=== PATIENT | male | born 1950 | race Caucasian/White ===

== ENCOUNTER 2018-07-28 16:45 | Inpatient (IN) | payer MEDICARE, MEDICAID ==
[2015-04-20 10:10] VITALS: Ht 182.9 cm; Wt 64.0 kg
[~2018-07-28] VITALS: Ht 182.9 cm; Wt 64.0 kg
[~2018-07-28 16:45] MED LIST: ASPI-1471 PO; FAMO-67 PO; GAB300 PO; IBU800 PO; IBUP-56 PO; LOR2I IV; LORA0.5T11 PO; NIC10R INH; PER PO; TRAZ150T8 PO; [UNRECOGNIZED DRUG - CODE]; no
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
[2018-07-28] MEDS ORDERED: THIAMINE HCL(*) 200 MG/2 ML IN 100 MG, FOLIC ACID(*) 50 MG/10 ML INJ 1 MG, MULTIVITAMIN... IV ONE (17:09)
[2018-07-28 17:26] LABS: PLATELET COUNT, AUTOMATED 146 K/uL (150-450)
[2018-07-28 17:34] LABS: INR 1.03
[2018-07-28] MEDS ORDERED: LORazepam 2 MG/ML VIAL IVP ONE ×3 (17:50→20:30)
--- NOTE | 2018-07-28 18:00 | RADIOLOGY IMAGING REPORT ---
FACILITY: [facility] PATIENT NAME: Tiburcio Christianson : 1950 MR: [id number] V: [id number] EXAM DATE: ORDERING PHYSICIAN: LOVE KING TECHNOLOGIST: Location: [facility] - [place] Patient: Tiburcio Christianson : 1950 Visit/Account:[id number] Date of Sevice: 07/28/2018 ADDENDUM #1 ADDENDUM: For clarification this is a right shoulder study. The first line of the BONES section should read "o blique lucency in the distal RIGHT clavicle just proximal to the AC joint consistent with an acute no ndisplaced fracture." Report Dictated By: Luis Marte at 08/03/2018 9:02 AM Report E-Signed By: Luis Marte at 08/03/2018 9:02 AM ORIGINAL REPORT SHOULDER MIN 2 VIEWS RIGHT COMPARISON: None. HISTORY: fall, pain TECHNIQUE: 3 views of the right shoulder were obtained FINDINGS: BONES: Oblique lucency in the distal left clavicle just proximal to the AC joint consistent with an acute nondisplaced fracture. The AC joint is intact and normally aligned. Glenohumeral joint is int act and normally aligned. No significant arthropathy or appreciable subacromial spur. Visualized ri ght ribs are intact. SOFT TISSUES: Negative. No visible soft tissue swelling. EFFUSION: None suggested. OTHER: Advanced facet joint arthritis, visualized cervical spine. IMPRESSION: Acute nondisplaced fracture of the distal right clavicle just proximal to the AC joint. Report Dictated By: Luis Marte at 07/28/2018 5:53 PM Report E-Signed By: Luis Marte at 07/28/2018 5:56 PM WSN:[email or web address]
--- NOTE | 2018-07-28 18:02 | RADIOLOGY IMAGING REPORT ---
FACILITY: [facility] PATIENT NAME: Tiburcio Christianson : 1950 MR: [id number] V: [id number] EXAM DATE: ORDERING PHYSICIAN: LOVE KING TECHNOLOGIST: Location: [facility] Patient: Tiburcio Christianson : 1950 Visit/Account:[id number] Date of Sevice: 07/28/2018 EXAMINATION: CT head without IV contrast HISTORY: Fall. TECHNIQUE: Axial CT images of the head were obtained from the vertex to the skull base without IV c ontrast, with coronal and sagittal 2D reconstructed images. One of the following dose optimization techniques was utilized in the performance of this exam: Autom ated exposure control; adjustment of the mA and/or kV according to the patient's size; or use of an i terative reconstruction technique. Specific details can be referenced in the facility's radiology C T exam operational policy. COMPARISON: None. FINDINGS: Moderate generalized parenchymal atrophy with mild patchy low attenuation in the deep white matter co mpatible with chronic small vessel ischemic change. Intracranial vascular calcifications. No CT evidence of intracranial hemorrhage, mass lesion, or acute infarct. No midline shift or extra-a xial fluid collections. Corbett-white differentiation is maintained. The calvarium is intact. The partially visualized paranasal sinuses and mastoid air cells are unopaci fied. IMPRESSION: 1. No CT evidence of acute intracranial pathology. 2. Moderate parenchymal atrophy with chronic small vessel ischemic change. Report Dictated By: Eb Feliz MD at 07/28/2018 5:50 PM Report E-Signed By: Eb Feliz MD at 07/28/2018 5:57 PM WSN:[email or web address]
--- NOTE | 2018-07-28 18:04 | RADIOLOGY IMAGING REPORT ---
FACILITY: [facility] [place] PATIENT NAME: Tiburcio Christianson : 1950 MR: [id number] V: [id number] EXAM DATE: ORDERING PHYSICIAN: LOVE KING TECHNOLOGIST: Location: [facility] [place] Patient: Tiburcio Christianson : 1950 Visit/Account:[id number] Date of Sevice: 07/28/2018 EXAMINATION: CT cervical spine without IV contrast HISTORY: Fall. TECHNIQUE: Thin axial CT images of the cervical spine were obtained without IV contrast, with sagit jeff and coronal 2D reconstructed images. One of the following dose optimization techniques was utilized in the performance of this exam: Autom ated exposure control; adjustment of the mA and/or kV according to the patient's size; or use of an i terative reconstruction technique. Specific details can be referenced in the facility's radiology C T exam operational policy. COMPARISON: None. FINDINGS: Advanced multilevel spondylotic changes in the cervical spine. There is severe disc space narrowing at the C3-C4 through C6-C7 interspaces, with endplate osteophyte formation. There is likely severe c entral canal narrowing at C4-C5 and C5-C6 related to posterior disc-osteophyte complexes. Multilevel facet arthropathy bilaterally. There is bony ankylosis of the right C2-C3 facet joint and the left C2-C4 facet joints. There is loss of the normal cervical lordosis with mild cervical kyphosis centered at C4 which may be chronic and degenerative in nature. No evidence of acute fracture or subluxation along the cervical spine. Vertebral body height is main tained. The dens is intact. Normal alignment at the craniocervical junction. IMPRESSION: 1. No acute osseous findings along the cervical spine. 2. Advanced chronic multilevel degenerative changes with likely severe central canal narrowing at C4 -C5 and C5-C6. Report Dictated By: Eb Feliz MD at 07/28/2018 5:57 PM Report E-Signed By: Eb Feliz MD at 07/28/2018 6:01 PM WSN:[email or web address]
[2018-07-28] MEDS ORDERED: DIAZEPAM 10 MG TAB PO PRN (20:25)
[2018-07-28 21:01] VITALS: BP 123/96
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
[2018-07-28] MEDS: NS(*) 0.9% 1000 ML BAG 1,000 ML IV PRN (21:52)
[2018-07-29] VITALS (8 sets, daily range): BP systolic 112–150; BP diastolic 72–107
[2018-07-29] MEDS: DIAZEPAM 10 MG TAB PO PRN ×4 (00:19→23:18)
[2018-07-29] MEDS: NS(*) 0.9% 1000 ML BAG 1,000 ML IV PRN (03:14)
[2018-07-29 06:15] LABS: PLATELET COUNT, AUTOMATED 126 K/uL (150-450)
[2018-07-29] MEDS: THIAMINE HCL 100 MG TAB PO SCH (08:41)
[2018-07-29] MEDS: FOLIC ACID 1 MG TAB PO SCH (08:41)
[2018-07-29] MEDS: ENOXAPARIN 40 MG/0.4ML SYR SC SCH (08:41)
--- NOTE | 2018-07-29 11:09 | NUR ---
Occupational Therapy Impression Pt seated EOB x15-20 minutes in coordination with PT wound care. Pt requiring Min-Max Ax1-2 to maintain upright balance seated EOB. Forward lean and right lateral lean present. Sling donned to R UE when OOB. Total Ax2 changing brief supine in bed. Pt reporting no pain throughout, VSS. Recommendations pending progress. Occupational Therapy Goals 1) Pt will be SBA UB/LB dressing. 2) Pt will be SBA grooming/hygiene. 3) Pt will be SBA toilet task. Patient's Goal
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
[2018-07-29] MEDS: NICOTINE INH SYSTEM 10 MG/INH INH PRN ×2 (13:32→21:20)
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
[2018-07-30 01:00] VITALS: BP 147/92
[2018-07-30 06:00] VITALS: BP 127/97
[2018-07-30 06:25] LABS: PLATELET COUNT, AUTOMATED 129 K/uL (150-450)
[2018-07-30] MEDS ORDERED: KCL (*) 20 MEQ/100 ML PREMIX 100 ML IV ONE ×2 (06:45→11:00)
[2018-07-30] MEDS ORDERED: NS(*) 0.9% 500 ML BAG 500 ML ONE (07:08)
[2018-07-30] MEDS ORDERED: NICOTINE CARTRIDGE 1 EA PO PRN (07:15)
[2018-07-30 07:35] VITALS: BP 118/80
[2018-07-30] MEDS: THIAMINE HCL 100 MG TAB PO SCH (09:04)
[2018-07-30] MEDS: ENOXAPARIN 40 MG/0.4ML SYR SC SCH (09:04)
[2018-07-30] MEDS: FOLIC ACID 1 MG TAB PO SCH (09:04)
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
[2018-07-30 13:07] VITALS: BP 118/87
--- NOTE | 2018-07-30 14:26 | NUR ---
Physical Therapy Impression Pt showed increased awareness and ability to maintain posture. Pt. was able to tf from supine in bed to sitting EOB with Kailash. Pt. was able to get LE off bed w/SBA, but required head of bed raised and Kailash to get into sitting EOB. Pt. sat at EOB for several minutes with CGA before standing. Pt, stood up from EOB w/ modA to maintain balance. Pt, took several side steps w/ modA of 2. Pt was left supine in bed w/pressure relief, all needs met, and family notified. Pt would benefit from further skilled PT care to improve overall strength, endurance, and ability to perform functional skills. Physical Therapy Goals 1: Pt to complete bed mobiltiy with Iam 2: Pt to complete transfers with Iam and appropriate AD 3: Pt to ambulate 100' with SBA and appropriate AD 4: Pt to asc/desc 1 step with SBA to simulate community mobility. Patient's Goals
--- NOTE | 2018-07-30 14:28 | NUR ---
This Physical Therapist or Hand Coremaker was present for the entire physical therapy session directing the services, making the skilled judgement, and was not engaged in treating another patient or doing another task at the same time as the treatment session. Addendum: 07/30/18 at 1428 by DARIANA DIEGO PT Amended: Links added.
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
--- NOTE | 2018-07-30 14:45 | NUR ---
Occupational Therapy Impression Introduced theraputty HEP to improve FM skills for feeding. Set-up combing hair. Recommend long-term rehab. Occupational Therapy Goals 1) Pt will be SBA UB/LB dressing. 2) Pt will be SBA grooming/hygiene. 3) Pt will be SBA toilet task. Patient's Goal
[2018-07-30] MEDS ORDERED: MAGNESIUM SUL* 2 GM/50 ML IVPB 50 ML IVPB ONE (15:55)
[2018-07-30 16:27] VITALS: BP 110/77
[2018-07-30] MEDS ORDERED: KCL (*) 20 MEQ/100 ML PREMIX 100 ML IV SCH (16:30)
[2018-07-30] MEDS: KCL (*) 20 MEQ/100 ML PREMIX 100 ML IV SCH ×2 (18:27→21:54)
[2018-07-30 19:53] VITALS: BP 139/99
[2018-07-31] VITALS (10 sets, daily range): BP systolic 87–166; BP diastolic 68–107
[2018-07-31] MEDS ORDERED: KCL/NS* 20 MEQ/1000 ML PREMIX 1,000 ML IV ONE (08:45)
--- NOTE | 2018-07-31 09:05 | NUR ---
Physical Therapy Impression Patient refused services today reports he does not want to do anything today. Nursing reports he did not sleep well last night.
[2018-07-31] MEDS: ENOXAPARIN 40 MG/0.4ML SYR SC SCH (09:06)
[2018-07-31] MEDS: FOLIC ACID 1 MG TAB PO SCH (09:06)
[2018-07-31] MEDS: THIAMINE HCL 100 MG TAB PO SCH (09:06)
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
[2018-07-31] MEDS: DIAZEPAM 10 MG TAB PO PRN ×2 (15:01→16:09)
[2018-07-31] MEDS ORDERED: METOPROLOL TART 5 MG/5 ML VIAL IVP ONE (18:05)
--- NOTE | 2018-07-31 19:01 | EKG ---
FACILITY: [facility] PATIENT NAME: LUÍS GRACE : [id number] MR: [id number] V: [id number] EXAM DATE: ORDERING PHYSICIAN: GHULAM CHRISTY TECHNOLOGIST: LEON Test Reason : TACHYCARDIA Blood Pressure : / mmHG Vent. Rate : 143 BPM Atrial Rate : 143 BPM P-R Int : 136 ms QRS Dur : 082 ms QT Int : 266 ms P-R-T Axes : 081 097 081 degrees QTc Int : 410 ms Sinus tachycardia Right atrial enlargement Rightward axis Pulmonary disease pattern Abnormal ECG When compared with ECG of 15-APR-2013 04:53, No significant change was found Confirmed by Ghulam Hernandez ([id number] on 07/31/2018 9:49:29 PM Referred By: Confirmed By:Ghulam Christy
[2018-07-31] MEDS ORDERED: NS(*) 0.9% 1000 ML BAG 1,000 ML IV ONE (19:45)
[2018-07-31] MEDS ORDERED: NS(*) 0.9% 50 ML BAG 50 ML ONE (19:56)
[2018-07-31] MEDS ORDERED: IOPAMIDOL 76% 100 ML INFUS BTL 100 ML ONE (19:56)
[2018-07-31 20:24] LABS: PLATELET COUNT, AUTOMATED 146 K/uL (150-450)
--- NOTE | 2018-07-31 21:54 | RADIOLOGY IMAGING REPORT ---
FACILITY: [facility] [place] PATIENT NAME: Tiburcio Christianson : 1950 MR: [id number] V: [id number] EXAM DATE: ORDERING PHYSICIAN: GHULAM CHRISTY TECHNOLOGIST: Location: [facility] Patient: Tiburcio Christianson : 1950 Visit/Account:[id number] Date of Sevice: 07/31/2018 EXAMINATION: CT CHEST PULMONARY ANGIOGRAM COMPARISON: None available HISTORY: tachycardia, elevated d-dimer PROCEDURE: Pulmonary arterial phase imaging of the chest with 75 mL intravenous Isovue 370. Reconstru ction of the source data set includes multiplanar 2D in the sagittal and coronal planes, and 3D recon structed coronal slab MIP series. One of the following dose optimization techniques was utilized in the performance of this exam: Autom ated exposure control; adjustment of the mA and/or kV according to the patient's size; or use of an i terative reconstruction technique. Specific details can be referenced in the facility's radiology C T exam operational policy. FINDINGS: Pulmonary vasculature: There is good contrast opacification of the pulmonary arterial system. No pul monary embolism. Main pulmonary artery size is normal. Cardiac and mediastinum: Cardiac chamber size is normal. Trace nonspecific pericardial effusion. No t horacic aortic aneurysm. Lymph nodes: Negative. Lungs and pleura: No consolidation or nodule. No pneumothorax, edema, or effusion. Minimal atelectasi s. Airways: Negative. Visualized upper abdomen: Mild adrenal thickening suggestive of adrenal hyperplasia. No acute finding s. Osseous structures: T10 and T12 superior endplate age-indeterminate compression fractures with minima l vertebral body height loss. Right lateral sixth and seventh rib healing fractures with additional h ealed right rib fractures. IMPRESSION: 1. No pulmonary embolism or evidence of acute cardiopulmonary disease. 2. T10 and T12 superior endplate age-indeterminate compression fractures. Correlation with any histor y of acute back pain or trauma is recommended. 3. Right lateral sixth and seventh rib healing fractures. Report Dictated By: Adrian Edouard MD at 07/31/2018 9:41 PM Report E-Signed By: Adrian Edouard MD at 07/31/2018 9:51 PM WSN:[id number]
[2018-08-01] VITALS (7 sets, daily range): BP systolic 87–180; BP diastolic 69–97
[2018-08-01] MEDS: ENOXAPARIN 40 MG/0.4ML SYR SC SCH (10:04)
[2018-08-01] MEDS: THIAMINE HCL 100 MG TAB PO SCH (10:05)
[2018-08-01] MEDS: FOLIC ACID 1 MG TAB PO SCH (10:05)
[2018-08-01] MEDS ORDERED: VANCOMYCIN(*) 1 GM VIAL 1 GM, VANCOMYCIN HCL 0.750 GM VIAL 0.75 GM in NS(*) 0.9% 250 ML... IVPB ONE (13:30)
[2018-08-01] MEDS: NS(*) 0.9% 1000 ML BAG 1,000 ML IV PRN (13:33)
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
[2018-08-01] MEDS: cefTRIAXone 1 GM VIAL IVP SCH (17:50)
[2018-08-02] MEDS: NS(*) 0.9% 1000 ML BAG 1,000 ML IV PRN ×2 (00:14→09:05)
[2018-08-02] MEDS ORDERED: VANCOMYCIN(*) 1 GM VIAL 1 GM in NS(*) 0.9% 250 ML BAG 250 ML IVPB SCH (01:30)
[2018-08-02 02:37] VITALS: BP 154/91
[2018-08-02 06:16] LABS: PLATELET COUNT, AUTOMATED 132 K/uL (150-450)
[2018-08-02 07:21] VITALS: BP 164/89
[2018-08-02 07:51] VITALS: BP 178/82
[2018-08-02] MEDS: FOLIC ACID 1 MG TAB PO SCH (08:57)
[2018-08-02] MEDS: ENOXAPARIN 40 MG/0.4ML SYR SC SCH (08:57)
[2018-08-02] MEDS: THIAMINE HCL 100 MG TAB PO SCH (08:57)
[2018-08-02] MEDS: POTASSIUM CHL 20 MEQ TABCR PO SCH ×2 (08:57→16:25)
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
--- NOTE | 2018-08-02 13:01 | NUR ---
Physical Therapy Impression Pt. was modA of two for supine<>sit, needing HOB raised and assistance with UE/LE. Pt. was Kailash for sit<>supine. Pt. performed 3x sit<>stand w/ modA and cuing for hip extension due to retropulsive stance. Pt. was able to briefly hold standing position. Pt. then performed 3x sit<> stand using sit<>stand lift and Kailash, cuing to not pull with R arm. Pt. attempted two side steps with modA. Pt. had significant difficulty and had to sit. Pt. would benefit from further skilled PT care to improve overall strength, improving standing tolerance. Pt. was left in bed w/ all needs met, call light in reach, and turned for pressure relief.
--- NOTE | 2018-08-02 13:21 | Pharmacy Note ---
Vancomycin Management Note Vanco Dosing Note Random Vanco level of 7 after load and 1g Q12h x 1 dose. Patient is under weight for height and has good renal function. Will increase dose to 1250mg Q12H and check for organism ID tomorrow. New vanco level to be drawn 08/03 at 1230. KALLIE CAMACHO August 02, 2018 13:21
[2018-08-02] MEDS ORDERED: VANCOMYCIN(*) 1 GM VIAL 1 GM, VANCOMYCIN (*) 0.5 GM VIAL 0.25 GM in NS(*) 0.9% 250 ML B... IVPB SCH (13:30)
--- NOTE | 2018-08-02 14:18 | NUR ---
Occupational Therapy Impression Pt alert and agreeable to OT tx with encouragement. Sling donned to right UE throughout tx. Max Ax1 bed mobility in/out with HOB raised. Max Ax1 sit<>stands in EZ lift. Retropulsive with sit<>stands. CGA<>Min A to maintain safety in EZ lift. Max Ax1 to change brief standing in EZ lift. Recommend long-term rehab. Occupational Therapy Goals 1) Pt will be SBA UB/LB dressing. 2) Pt will be SBA grooming/hygiene. 3) Pt will be SBA toilet task. Patient's Goal
--- NOTE | 2018-08-02 15:09 | NUR ---
Physical Therapy Impression Pt. was modA of two for supine>sit, needing HOB raised and assistance with UE/LE. Pt. was Kailash for sit>supine. Pt. performed 3x sit<>stand w/ modA and cuing for hip extension due to retropulsive stance. Pt. was able to briefly hold standing position. Pt. then performed 3x sit<> stand using sit<>stand lift and Kailash, cuing to not pull with R arm. Pt. attempted two side steps with modA. Pt. had signifcant diffuclty and had to sit. Pt. would benefit from further skilled PT care to improve overall strength, improving standing tolerance. Pt. was left in bed w/ all needs met, call light in reach, and turned for pressure relief. Physical Therapy Goals 1: Pt to complete bed mobiltiy with Iam 2: Pt to complete transfers with Iam and appropriate AD 3: Pt to ambulate 100' with SBA and appropriate AD 4: Pt to asc/desc 1 step with SBA to simulate community mobility. Patient's Goals
--- NOTE | 2018-08-02 15:10 | NUR ---
This Physical Therapist or Dx Board Operator was present for the entire physical therapy session directing the services, making the skilled judgement, and was not engaged in treating another patient or doing another task at the same time as the treatment session. Addendum: 08/02/18 at 1511 by DARIANA DIEGO PT Amended: Links added.
[2018-08-02] MEDS: cefTRIAXone 1 GM VIAL IVP SCH (15:17)
[2018-08-02 15:20] VITALS: BP 140/87
[2018-08-02] MEDS ORDERED: INFLUENZA VIRUS VAC 0.5ML SYR IM ONLY ONE (20:25)
[2018-08-02 20:29] VITALS: BP 166/83
[2018-08-03] VITALS (7 sets, daily range): BP systolic 122–172; BP diastolic 55–100
[2018-08-03] MEDS ORDERED: VANCOMYCIN(*) 1 GM VIAL 1 GM, VANCOMYCIN (*) 0.5 GM VIAL 0.25 GM in NS(*) 0.9% 250 ML B... IVPB SCH (01:30)
[2018-08-03] MEDS: NS(*) 0.9% 1000 ML BAG 1,000 ML IV PRN (03:36)
[2018-08-03 06:24] LABS: PLATELET COUNT, AUTOMATED 160 K/uL (150-450)
[2018-08-03] MEDS: THIAMINE HCL 100 MG TAB PO SCH (08:20)
[2018-08-03] MEDS: POTASSIUM CHL 20 MEQ TABCR PO SCH ×2 (08:20→16:16)
[2018-08-03] MEDS: ENOXAPARIN 40 MG/0.4ML SYR SC SCH (08:20)
[2018-08-03] MEDS: FOLIC ACID 1 MG TAB PO SCH (08:20)
--- NOTE | 2018-08-03 09:01 | NUR ---
Physical Therapy Impression Patient was able to transfer supine <-> sit with min A with HOB in upright position. When transferring back to bed patient transferred sit to supine min A with raised HOB. Patient transferred from EOB to STS lift with min A patient transferred from toilet to stand with mod A. Patient transferred from EOB to ground x 3 transfers with min to mod A and 1 side step. For all transfers SSDS MK 2 ADVANCED OPERATOR was present and helping. Physical Therapy Goals 1: Pt to complete bed mobiltiy with Iam 2: Pt to complete transfers with Iam and appropriate AD 3: Pt to ambulate 100' with SBA and appropriate AD 4: Pt to asc/desc 1 step with SBA to simulate community mobility. Patient's Goals
[2018-08-03] MEDS: CLINDAMYCIN 150 MG CAP PO SCH ×4 (09:43→21:34)
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
--- NOTE | 2018-08-03 13:04 | NUR ---
Occupational Therapy Impression Mod A x1 bed mobility in/out. Retropulsive with sit<>stands. CGA<>Min A to maintain safety in EZ lift. Tolerating marching in place and standing [id number] in EZ lift. Right UE in sling for duration of tx. Pt declining ADLs. Plan to progressive less restrictive AD in tomorrows session. Recommend long-term rehab. Occupational Therapy Goals 1) Pt will be SBA UB/LB dressing. 2) Pt will be SBA grooming/hygiene. 3) Pt will be SBA toilet task. Patient's Goal
[2018-08-03] MEDS: ACETAMINOPHEN 500 MG TAB PO PRN (23:33)
[2018-08-04 05:50] LABS: PLATELET COUNT, AUTOMATED 217 K/uL (150-450)
--- NOTE | 2018-08-04 08:30 | NUR ---
Physical Therapy Impression Patient instructed in gait training in room with FWW with max cuing not to use his left arm. Patient was non compliant with sling and not using arm for ambulation. Patient was CGA with ambulation from bed to door then to bathroom back to door then to bed. Patient was SBA with bed mobility. Co treatment with OT was necessary for safety of patient. Physical Therapy Goals 1: Pt to complete bed mobiltiy with Iam 2: Pt to complete transfers with Iam and appropriate AD 3: Pt to ambulate 100' with SBA and appropriate AD 4: Pt to asc/desc 1 step with SBA to simulate community mobility. Patient's Goals
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
[2018-08-04 09:08] VITALS: BP 131/70
[2018-08-04] MEDS: CLINDAMYCIN 150 MG CAP PO SCH ×4 (09:34→20:36)
[2018-08-04] MEDS: THIAMINE HCL 100 MG TAB PO SCH (09:34)
[2018-08-04] MEDS: POTASSIUM CHL 20 MEQ TABCR PO SCH ×2 (09:34→17:21)
[2018-08-04] MEDS: FOLIC ACID 1 MG TAB PO SCH (09:34)
[2018-08-04] MEDS: ENOXAPARIN 40 MG/0.4ML SYR SC SCH (09:34)
[2018-08-04 11:50] VITALS: BP 134/83
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
[2018-08-04 15:33] VITALS: BP 141/77
[2018-08-04 19:44] VITALS: BP 122/79
[2018-08-04] MEDS: ACETAMINOPHEN 500 MG TAB PO PRN (19:56)
[2018-08-05] VITALS (7 sets, daily range): BP systolic 111–183; BP diastolic 74–97
[2018-08-05] MEDS: ENOXAPARIN 40 MG/0.4ML SYR SC SCH (10:26)
[2018-08-05] MEDS: FOLIC ACID 1 MG TAB PO SCH (10:26)
[2018-08-05] MEDS: THIAMINE HCL 100 MG TAB PO SCH (10:26)
[2018-08-05] MEDS: CLINDAMYCIN 150 MG CAP PO SCH (10:26)
[2018-08-05] MEDS: POTASSIUM CHL 20 MEQ TABCR PO SCH ×2 (10:26→17:50)
--- NOTE | 2018-08-05 10:56 | NUR ---
Physical Therapy Impression Patient instructed in gait training with FWW CGA x 2 people for safety for first rep then CGA x 1 person as he had increased stability. Patient then ambulated to the bathroom and was min A for toileting. Min A bed mobility and CGA for STS transfers. Co treatment with OT was necessary for safety of the patient. Physical Therapy Goals 1: Pt to complete bed mobiltiy with Iam 2: Pt to complete transfers with Iam and appropriate AD 3: Pt to ambulate 100' with SBA and appropriate AD 4: Pt to asc/desc 1 step with SBA to simulate community mobility. Patient's Goals
--- NOTE | 2018-08-05 11:27 | NUR ---
Occupational Therapy Impression Co-treat with PT. Time split between 2 disciplines for billing. Pt. ambulated 60 feet x2 with one seated rest break on room air with CGA.Pt. non compliant with sling use on RUE stating, "take that damn thing off, it's just getting in my way). Pt. observed to bear weight and navigate walker with use of RUE despite therapist cues. Recommend d/c to [facility]. Occupational Therapy Goals 1) Pt will be SBA UB/LB dressing. 2) Pt will be SBA grooming/hygiene. 3) Pt will be SBA toilet task. Patient's Goal
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
[2018-08-05] MEDS: ceFAZolin(*) 2GM/D5W 50ML 50 ML IVPB SCH ×2 (14:14→21:58)
[2018-08-06] MEDS: ceFAZolin(*) 2GM/D5W 50ML 50 ML IVPB SCH ×2 (05:28→13:15)
[2018-08-06 07:14] VITALS: BP 138/91
[2018-08-06] MEDS: THIAMINE HCL 100 MG TAB PO SCH (08:36)
[2018-08-06] MEDS: FOLIC ACID 1 MG TAB PO SCH (08:36)
[2018-08-06] MEDS: POTASSIUM CHL 20 MEQ TABCR PO SCH (08:36)
[2018-08-06] MEDS: ENOXAPARIN 40 MG/0.4ML SYR SC SCH (08:37)
[2018-08-06] MEDS ORDERED: ACET-2043 PO (12:51)
[2018-08-06] MEDS ORDERED: FOLI-68 PO (12:51)
[2018-08-06] MEDS ORDERED: POTA20TA94 PO (12:52)
[2018-08-06] MEDS ORDERED: NIC10R INH (12:52)
[2018-08-06] MEDS ORDERED: THIA100T20 PO (12:52)
[2018-08-06] MEDS ORDERED: CEFA1FRO IV (12:53)
--- NOTE | 2018-08-06 13:04 | RADIOLOGY IMAGING REPORT ---
FACILITY: [facility] [place] PATIENT NAME: Tiburcio Christianson : 1950 MR: [id number] V: [id number] EXAM DATE: ORDERING PHYSICIAN: GEORGE MCCAULEY TECHNOLOGIST: Location: [facility] Patient: Tiburcio Christianson : 1950 Visit/Account:[id number] Date of Sevice: 08/06/2018 Ultrasound and fluoroscopic guided PICC placement: History: Needs access for long-term IV antibiotics. Comparison: None. Procedure/findings: Risks of the procedure were discussed with the patient who signed consent. Formal timeout was performed. Skin over the left upper arm was prepped and draped in a sterile fashi on. Skin and soft tissues anesthetized with 1% lidocaine. Under direct ultrasound guidance, access wa s made into the left basilic vein with a micropuncture needle. Ultrasound was utilized because an ap propriate vein could not be visualized or palpated. Ultrasound was also utilized to assess patency o f the vessel. Ultrasound image is archived to PACS. 0.018 inch wire was advanced through the needle a nd needle exchanged for a peel-away sheath and vascular dilator. Dilator was removed. A 5 Yi dual -lumen power PICC which had been cut to 41 cm was advanced over the wire. Tip of the catheter is at t he right atrial SVC junction. Fluoroscopic image which documents position is archived to PACS. Both l umens could be flushed and blood withdrawn easily. Fluoroscopy time: 0.5 minutes AK: 46.67 uGym2. IMPRESSION: Ultrasound and fluoroscopic guided left basilic vein PICC placement. Report Dictated By: Blanca Monte MD at 08/06/2018 12:57 PM Report E-Signed By: Blanca Monte MD at 08/06/2018 1:00 PM WSN:[email or web address]
--- NOTE | 2018-08-06 13:05 | RADIOLOGY IMAGING REPORT ---
FACILITY: [facility] PATIENT NAME: Tiburcio Christianson : 1950 MR: [id number] V: [id number] EXAM DATE: ORDERING PHYSICIAN: GEORGE MCCAULEY TECHNOLOGIST: Location: [facility] Patient: Tiburcio Christianson : 1950 Visit/Account:[id number] Date of Sevice: 08/06/2018 Ultrasound and fluoroscopic guided PICC placement: History: Needs access for long-term IV antibiotics. Comparison: None. Procedure/findings: Risks of the procedure were discussed with the patient who signed consent. Formal timeout was performed. Skin over the left upper arm was prepped and draped in a sterile fashi on. Skin and soft tissues anesthetized with 1% lidocaine. Under direct ultrasound guidance, access wa s made into the left basilic vein with a micropuncture needle. Ultrasound was utilized because an ap propriate vein could not be visualized or palpated. Ultrasound was also utilized to assess patency o f the vessel. Ultrasound image is archived to PACS. 0.018 inch wire was advanced through the needle a nd needle exchanged for a peel-away sheath and vascular dilator. Dilator was removed. A 5 Yoruba dual -lumen power PICC which had been cut to 41 cm was advanced over the wire. Tip of the catheter is at t he right atrial SVC junction. Fluoroscopic image which documents position is archived to PACS. Both l umens could be flushed and blood withdrawn easily. Fluoroscopy time: 0.5 minutes AK: 46.67 uGym2. IMPRESSION: Ultrasound and fluoroscopic guided left basilic vein PICC placement. Report Dictated By: Blanca Monte MD at 08/06/2018 12:57 PM Report E-Signed By: Blanca Monte MD at 08/06/2018 1:00 PM WSN:[email or web address]
--- NOTE | 2018-08-06 13:06 | NUR ---
PHYSICAL THERAPY INFORMATION TRANSFER SHEET BED MOBILITY: Minimum Assistance 2 person assist TRANSFERS: CGA GAIT: 120 ' with RW and CGA Weightbearing Status: STAIRS: with . EXERCISES: Verbalizes Needs: Yes Understands Directions Yes Cooperative: Yes Family Teaching: Yes Physical Therapy Comment:
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
[2018-08-06] MEDS ORDERED: MAGN250T26 PO (13:16)
--- NOTE | 2018-08-06 14:01 | NUR ---
OCCUPATIONAL THERAPY Dressing Assistance: Refused Dressing Aid Required: Bathing Assistance: Bathing Equipment: Home Assessment: Not Completed Feeding Assistance: Set- up Feeding Specialized Equipment: Toilet Use: Minimum Assistance Verbalizes Needs: Yes Understands Precautions: Yes Cooperative: Yes Family Teaching: No Occupational Therapy Comment: Pt. to d/c to [facility] for continued rehab.
== END 2018-08-06 15:06 | DRG 896 ==
LOC: ER 17:01 → MED 20:13
PROVIDERS: ADMIT Internal Medicine; ATTEND Internal Medicine
DX: F10.232 Alcohol dependence with withdrawal with perceptual disturbance (principal); I33.0 Acute and subacute infective endocarditis; T31.20 Burns involving 20-29% of body surface with 0% to 9% third degree burns; T79.6XXA Traumatic ischemia of muscle, initial encounter; T21.21XA Burn of second degree of chest wall, initial encounter; T24.111A Burn of first degree of right thigh, initial encounter; E87.6 Hypokalemia; S42.034A Nondisplaced fracture of lateral end of right clavicle, initial encounter for closed fracture; B95.61 Methicillin susceptible Staphylococcus aureus infection as the cause of diseases classified elsewhere; F17.210 Nicotine dependence, cigarettes, uncomplicated; X15.0XXA Contact with hot stove (kitchen), initial encounter; W18.30XA Fall on same level, unspecified, initial encounter; Y92.000 Kitchen of unspecified non-institutional (private) residence as the place of occurrence of the external cause; Y99.8 Other external cause status; Y90.0 Blood alcohol level of less than 20 mg/100 ml
CPT/HCPCS: 36415; 36573; 70450; 71275; 72125; 80202; 80305; 80320; 80329; 81001; 82040; 82247; 82310; 82374; 82435; 82550; 82565; 82947; 83605; 83735; 84075; 84132; 84155; 84295; 84443; 84450; 84460; 84520; 85025; 85379; 85610; 85730; 87040; 87077; 87088; 87186; 93005; 93306; 96375; 96376; 97161; 97162; 97166; 99285; C1751; J0690; J0696; J1650; J2060; J3370; J3411; J3475; J3480; J7030; J7050; Q9967